=== PATIENT | male | born 1980 | race Caucasian/White ===

== ENCOUNTER → 2016-10-20 | Outpatient (CLI) | payer OTHER ==
[~2016-10-20] MED LIST: VSNOPS OPR
--- NOTE | 2016-10-20 19:56 | ECHOCARDIOGRAM REPORT ---
*NOTICE TO RECEIVING DEMOCRAT AGENCY This information is strictly Confidential and protected under [place] law. [place] law prohibits you from making any further disclosure of this information unless further disclosure is expressly permitted by the written consent of the person to whom it pertains or is authorized by law. A general authorization for the release of medical or other information is not sufficient for this purpose. Hospital accepts no responsibility if the information is made available to any other person, INCLUDING THE PATIENT. Interpretation Summary * Name: BARBARA BAY Study Date: 10/20/2016 02:35 PM BP: 149/80 mmHg * Patient Location: [facility] HR: 66 * : 1980 (M/d/yyyy) Gender: Male Height: 65 in * Age: 36 yrs Ethnicity: [place] Weight: 185 lb * Ordering Physician: Maritza Millan * Referring Physician: Maritza Millan PA-C * Performed By: Anitra Hall RCS * * Reason For Study: PERIPHERAL VENOUS INSUFFICIENCY / B/L EDEMA * BSA: 1.9 m2 * Normal biventricular systolic function. * Normal chamber dimensions. * Mild concentric left ventricular hypertrophy. * Left ventricular diastolic dysfunction. * No valvular abnormalities noted. Procedure Details * A complete two-dimensional transthoracic echocardiogram was performed (2D, M-mode, Doppler and color flow Doppler). Left Ventricle * The left ventricle is normal in size. * There is mild concentric left ventricular hypertrophy. * Left ventricular systolic function is normal. * Ejection Fraction = 65-70%. * A full diastolic examination was done with clinical findings of Class I diastolic dysfunction. * The left ventricular wall motion is normal. Right Ventricle * The right ventricle is normal in size and function. Atria * The left atrial size is normal. * Right atrial size is normal. * No ASD detected; PFO is not assessed. Mitral Valve * The mitral valve is normal. * There is no mitral valve stenosis. * There is no mitral regurgitation noted. Tricuspid Valve * The tricuspid valve is normal. * There is no tricuspid stenosis. * No tricuspid regurgitation. Aortic Valve * The aortic valve is trileaflet. * The aortic valve opens well. * Aortic stenosis is absent. * No aortic regurgitation is present. Pulmonic Valve * The pulmonic valve leaflets are thin and pliable; valve motion is normal. * There is no pulmonic valvular stenosis. * There is no pulmonic valvular regurgitation. Great Vessels * The aortic root is normal size. Pericardium/Pleural * There is no pericardial effusion. Great Vessels * Normal inferior vena cava diameter and respiratory variation suggests normal central venous pressure. MMode 2D Measurements and Calculations IVSd 1.3 cm IVSs 1.4 cm LVIDd 4.7 cm LVIDs 2.9 cm LVPWd 1.2 cm LVPWs 1.5 cm IVS/LVPW 1.1 FS 37.7 % EDV(Teich) 102.5 ml ESV(Teich) 33.0 ml EF(Teich) 67.8 % EDV(cubed) 104.0 ml ESV(cubed) 25.1 ml EF(cubed) 75.9 % % IVS thick 8.5 % % LVPW thick 17.2 % LV mass(C)d 232.7 grams LV mass(C)dI 121.6 grams/m\S\2 LV mass(C)s 143.1 grams LV mass(C)sI 74.8 grams/m\S\2 SV(Teich) 69.5 ml SI(Teich) 36.3 ml/m\S\2 SV(cubed) 78.9 ml SI(cubed) 41.2 ml/m\S\2 Ao root diam 3.5 cm Ao root area 9.8 cm\S\2 LA dimension 3.3 cm LA/Ao 0.93 LVOT diam 2.0 cm LVOT area 3.2 cm\S\2 Doppler Measurements and Calculations MV E max sammi 75.0 cm/sec MV A max sammi 82.0 cm/sec MV E/A 0.92 MV P1/2t max sammi 76.8 cm/sec MV P1/2t 93.3 msec MVA(P1/2t) 2.4 cm\S\2 MV dec slope 241.2 cm/sec\S\2 MV dec time 0.25 sec Ao V2 max 98.4 cm/sec Ao max PG 3.9 mmHg Ao max PG (full) 0.52 mmHg BASIM(V,A) 3.0 cm\S\2 BASIM(V,D) 3.0 cm\S\2 LV V1 max PG 3.4 mmHg LV V1 max 91.7 cm/sec PA V2 max 104.8 cm/sec PA max PG 4.4 mmHg
== END | disposition home or self-care (01) ==
LOC: C.CPL 14:27
PROVIDERS: ATTEND Physician Assistant
DX: I87.2 Venous insufficiency (chronic) (peripheral) (principal); R60.0 Localized edema

== ENCOUNTER → 2016-11-10 | Outpatient (CLI) | payer OTHER ==
--- NOTE | 2016-11-10 08:35 | DIAGNOSTIC IMAGING REPORT ---
CHEST 2 VIEWS ROUTINE CLINICAL HISTORY: RIGHT BUNDLE BRANCH BLOCK LEFT VENTRICULAR HYPERTROPHY COMPARISON STUDY: 08/01/2011 FINDINGS: The cardiac and mediastinal contours are normal. There is no evidence of focal pulmonary consolidation. There is no evidence of failure. No pleural effusions are visualized.[ IMPRESSION: No active disease in the chest. Electronically signed by: Hardik Molina M.D. 11/10/2016 8:33 AM Dictated Date/Time: 11/10/2016 8:33 AM
--- NOTE | 2016-11-11 03:44 | EXERCISE STRESS TEST ---
REFERRING PHYSICIAN: Maritza Millan. INDICATION: Atypical chest pain. FINDINGS: The patient exercised using a standard [place] protocol for 11 minutes and 30 seconds. Exercise was discontinued due to achieving target heart rate. The patient's baseline EKG involved a right bundle-branch block. There were no significant EKG changes noted during exercise or recovery. The patient's blood pressure was normal. There were no symptoms reported during exercise testing. [place] treadmill score is 11 which represents low risk. IMPRESSION: 1. Normal maximal exercise treadmill test without evidence of inducible ischemia. 2. Normal blood pressure response to exercise.
== END | disposition home or self-care (01) ==
LOC: C.CPL 07:10
PROVIDERS: ATTEND Physician Assistant
DX: I45.10 Unspecified right bundle-branch block (principal); I51.7 Cardiomegaly; I51.9 Heart disease, unspecified

== ENCOUNTER → 2018-01-18 | Outpatient (CLI) | payer OTHER ==
--- NOTE | 2018-01-18 14:43 | DIAGNOSTIC IMAGING REPORT ---
CHEST 2 VIEWS ROUTINE HISTORY: Cough. COMPARISON: Chest 11/10/2016. FINDINGS: The lungs are clear. Cardiac silhouette is normal in size. No pleural effusions. No pneumothorax. IMPRESSION: No acute process. Electronically signed by: Mc Stallings M.D. 01/18/2018 2:42 PM Dictated Date/Time: 01/18/2018 2:40 PM
== END | disposition home or self-care (01) ==
LOC: C.RAD 13:49
PROVIDERS: ATTEND Physician Assistant
DX: R05 Cough (principal)